=== PATIENT | male | born 1995 | race Caucasian/White ===

== ENCOUNTER 2018-04-20 20:56 | Emergency (ER) | payer OTHER ==
[~2018-04-20] VITALS: Ht 170.2 cm; Wt 90.9 kg
[~2018-04-20 20:56] MED LIST: CLONI1TA PO; GABA-845 PO; VENL150C43 PO
[2018-04-20] MEDS ORDERED: CYCLOBENZAPRINE 10 MG TAB PO ONE (21:30)
[2018-04-20] MEDS ORDERED: KETOROLAC 30 MG/ML VIAL (J1885) IV ONE (21:30)
[2018-04-20 21:52] LABS: BASO # 0.1 10^3/uL (0.0-0.2); BASO % 0.7 % (0.0-1.0); EOS # 0.8 10^3/uL (0.0-0.50); EOS % 7.2 % (0.0-3.0); HEMATOCRIT 47.8 % (42.0-52.0); HEMOGLOBIN 16.1 g/dl (13.5-17.5); LYMPH # 3.9 10^3/uL (1.5-6.5); LYMPH % 36.1 % (24.0-44.0); MEAN CORPUSCULAR HEMOGLOBIN 29.9 pg (27.0-33.0); MEAN CORPUSCULAR HGB CONC 33.7 g/dl (32.0-36.5); MEAN CORPUSCULAR VOLUME 88.8 fl (80.0-96.0); MONO # 0.8 10^3/uL (0.0-0.8); MONO % 7.5 % (0.0-5.0); NEUTROPHILS # 5.2 10^3/uL (1.8-7.7); NEUTROPHILS % 48.2 % (36.0-66.0); PLATELET COUNT, AUTOMATED 274 10^3/uL (150-450); RED BLOOD COUNT 5.38 10^6/uL (4.30-6.10); WHITE BLOOD COUNT 10.8 10^3/uL (4.0-10.0)
[2018-04-20 22:10] LABS: ERYTHROCYTE SEDIMENTATION RATE 1 mm/hr (0-15)
[2018-04-20 22:14] LABS: ALT/SGPT 35 U/L (12-78); BILIRUBIN,DIRECT < 0.1 MG/DL (0.0-0.2); BILIRUBIN,TOTAL 0.3 MG/DL (0.2-1.0); BLOOD UREA NITROGEN 9 MG/DL (7-18); C REACTIVE PROTEIN QUANTITATIV < 0.30 MG/DL (0.00-0.30); CALCIUM LEVEL 8.9 MG/DL (8.5-10.1); CARBON DIOXIDE LEVEL 27 MEQ/L (21-32); CHLORIDE LEVEL 109 MEQ/L (98-107); CREATININE FOR GFR 1.04 MG/DL (0.70-1.30); GLOMERULAR FILTRATION RATE > 60.0 (>60); GLUCOSE, FASTING 105 MG/DL (70-100); POTASSIUM SERUM 4.3 MEQ/L (3.5-5.1); SODIUM LEVEL 142 MEQ/L (136-145); TOTAL PROTEIN 6.8 GM/DL (6.4-8.2)
[2018-04-20] MEDS ORDERED: ISOVUE-370 76% 100ML VIAL (Q9967) As Ordered ONE (22:17)
--- NOTE | 2018-04-20 23:06 | REPVR ---
EXAM: CT Neck With Contrast EXAM DATE/TIME: 04/20/2018 10:20 PM CLINICAL HISTORY: 22 years old, male; Pain; Neck pain; Additional info: Pain/swelling TECHNIQUE: Axial computed tomography images of the neck with intravenous contrast. All CT scans at this facility use at least one of these dose optimization techniques: automated exposure control; mA and/or kV adjustment per patient size (includes targeted exams where dose is matched to clinical indication); or iterative reconstruction. Coronal and sagittal reformatted images were created and reviewed. CONTRAST: 75 ml of iso 370 administered intravenously. COMPARISON: No relevant prior studies available. FINDINGS: Oropharynx: Normal. No significant tonsillar enlargement. Larynx: The epiglottis is normal. Submandibular/Parotid glands: Normal. Glands are normal in size. Thyroid: Normal. No enlarged or calcified nodules. Lymph nodes: Normal. No lymphadenopathy. Lungs: Normal as visualized. Vasculature: No acute findings. Bones/joints: Normal. No acute fracture. Soft tissues: With left upper extremity injection, there is prominent collateralization around the left shoulder and neck. IMPRESSION: 1. Venous collateralization through the left neck and shoulder suggesting some hindrance to main inflow. 2. Otherwise negative CT soft tissue neck. Electronically signed by: Dar Hooker On 04/20/2018 23:05:58 PM
[2018-04-21] MEDS ORDERED: MORPHINE 10 MG/ML 1ML VIAL (J2270) IM ONE
[2018-04-21 00:10] VITALS: BP 110/64
[2018-04-21] MEDS ORDERED: AUGMENTIN 875 MG TAB PO ONE (00:45)
[2018-04-21] MEDS ORDERED: BACL10TA2 PO (01:02)
[2018-04-21] MEDS ORDERED: KETO10TAB PO (01:02)
[2018-04-21] MEDS ORDERED: AUGM875T28 PO (01:02)
--- NOTE | 2018-04-21 07:21 | ED PDOC ---
Post-Departure Follow-Up ft annalisa rodrigues faxed formal report of ct neck for fu Makenna Brunner MD Apr 21, 2018 07:21
== END 2018-04-21 01:11 | disposition home or self-care (01) ==
LOC: M ED 20:56
DX: H66.91 Otitis media, unspecified, right ear (principal); G24.3 Spasmodic torticollis
CPT/HCPCS: 70491; 80048; 80076; 83605; 85025; 85652; 86140; 87040; 96372; 96374; 99284; J1885; J2270; Q9967